=== PATIENT | male | born 1955 | race Caucasian/White ===

== ENCOUNTER 2016-05-09 13:41 | Outpatient (CLI) | payer OTHER ==
--- NOTE | 2016-05-09 14:12 | DIAGNOSTIC IMAGING REPORT ---
PROCEDURE: XR CHEST 2 VIEW INDICATION: FATIGUE TECHNIQUE: PA and lateral view. COMPARISON: None. FINDINGS: Lungs are clear. Cardiovascular structures are normal. Bony thorax is unremarkable. IMPRESSION: 1. Negative chest.
--- NOTE | 2016-05-09 14:35 | DIAGNOSTIC IMAGING REPORT ---
PROCEDURE: US ABDOMEN ULTRASOUND-COMPLETE INDICATION: HX HEP C,ABD PAIN TECHNIQUE: Cain scale and color Doppler sonographic images of the abdomen were obtained. COMPARISON: None. FINDINGS: Liver measures 18.2 cm with coarse echo structure consistent with a history of hepatitis C. There is a 1.5 cm left hepatic lobe echogenic mass most consistent with hemangioma. There is also a 1.3 cm left hepatic lobe simple cyst. Normal gallbladder and CBD (6 mm). Negative Salinas's sign. Normal spleen. Pancreas obscured by bowel gas. Aorta and IVC are patent. Normal hepatopetal flow. Normal kidneys. Right kidney measures 11.5 cm and left kidney 10.9 cm. IMPRESSION: 1. Coarse liver echo structure consistent with a history of hepatitis C 2. 1.5 cm left hepatic lobe echogenic mass suggestive of a hemangioma. Other etiologies are less likely. 3. 1.3 cm hepatic cysts
== END 2016-05-09 23:00 ==
LOC: US SRH 13:41
DX: R53.83 Other fatigue (principal); Z86.19 Personal history of other infectious and parasitic diseases; K76.89 Other specified diseases of liver; R16.0 Hepatomegaly, not elsewhere classified